=== PATIENT | female | born 1930 | race Caucasian/White ===

== ENCOUNTER 2018-05-23 15:26 | Emergency (ER) | payer MEDICARE, OTHER ==
[~2018-05-23] VITALS: Ht 165.1 cm; Wt 81.4 kg
[2018-05-23 16:37] LABS: BASOPHILS % (AUTO) 0.4 % (0-1); EOSINOPHILS % (AUTO) 0.2 % (0-6); HEMOGLOBIN 12.6 g/dl (12.0-16.0); LYMPHOCYTES # (AUTO) 0.8 X10'3 (1.1-4.8); LYMPHOCYTES % (AUTO) 16.4 % (21-51); MEAN CORPUSCULAR HEMOGLOBIN 28.2 PG (27.0-31.0); MEAN PLATELET VOLUME 7.9 FL (7.4-10.4); MONOCYTES # (AUTO) 0.6 X10'3 (0-0.9); MONOCYTES % (AUTO) 11.2 % (2-12); NEUTROPHILS # (AUTO) 3.6 X10'3 (1.8-7.7); NEUTROPHILS % (AUTO) 71.8 % (42-75); PLATELET COUNT 230 X10'3 (140-440); RED BLOOD COUNT 4.46 X10'6 (4.20-5.60); RED CELL DISTRIBUTION WIDTH 14.5 % (11.5-14.5); WHITE BLOOD COUNT 5.1 X10'3 (4.5-11.0)
[2018-05-23 16:53] LABS: ALANINE AMINOTRANSFERASE 18 U/L (12-78); ALBUMIN 3.8 G/DL (3.4-5.0); ALBUMIN/GLOBULIN RATIO 0.9 (1.1-1.5); ALKALINE PHOSPHATASE 91 IU/L (46-116); ANION GAP 11 (8-16); ASPARTATE AMINO TRANSFERASE 25 U/L (10-37); BILIRUBIN,TOTAL 0.5 MG/DL (0.1-1.0); BLOOD UREA NITROGEN 16 MG/DL (7-18); BUN/CREATININE RATIO 16.3 (6.6-38.0); CALCIUM 8.8 MG/DL (8.5-10.1); CHLORIDE 100 MMOL/L (99-107); CREATININE 0.98 MG/DL (0.40-0.90); GLUCOSE 98 MG/DL (70-104); POTASSIUM 3.2 MMOL/L (3.5-5.1); SODIUM 140 MMOL/L (135-145); TOTAL CARBON DIOXIDE 28.8 MMOL/L (24-32); TOTAL PROTEIN 8.1 G/DL (6.4-8.2); eGFR 54 ML/MIN
[2018-05-23] MEDS ORDERED: azithromycin 250mg tablet PO ONE (17:15)
[2018-05-23] MEDS ORDERED: albuterol 2.5 MG/3 ML nebule NEB ONE (17:15)
[2018-05-23] MEDS ORDERED: ALBU18HF2 INH (17:20)
[2018-05-23] MEDS ORDERED: AZIT250T PO (17:20)
[2018-05-23 18:16] VITALS: BP 156/67
== END 2018-05-23 18:18 | disposition home or self-care (01) ==
LOC: ER 15:27
DX: J20.9 Acute bronchitis, unspecified (principal); Z88.2 Allergy status to sulfonamides; Z79.899 Other long term (current) drug therapy; Z98.890 Other specified postprocedural states
CPT/HCPCS: 36415; 71046; 80053; 83605; 85025; 87040; 94640; 94760; 99284

== ENCOUNTER 2018-06-02 10:27 | Emergency (ER) | payer MEDICARE, OTHER ==
[~2018-06-02] VITALS: Ht 167.6 cm; Wt 79.5 kg
[~2018-06-02 10:27] MED LIST: ALBU18HF2 INH
[2018-06-02 11:30] LABS: BASOPHILS % (AUTO) 0.2 % (0-1); EOSINOPHILS % (AUTO) 0.1 % (0-6); HEMATOCRIT 37.2 % (35.0-45.0); HEMOGLOBIN 12.2 g/dl (12.0-16.0); LYMPHOCYTES # (AUTO) 0.7 X10'3 (1.1-4.8); LYMPHOCYTES % (AUTO) 6.1 % (21-51); MEAN CORPUSCULAR HEMOGLOBIN 27.1 PG (27.0-31.0); MEAN CORPUSCULAR HGB CONC 32.8 g/dL (33.0-36.5); MEAN CORPUSCULAR VOLUME 82.6 FL (78-98); MEAN PLATELET VOLUME 7.5 FL (7.4-10.4); MONOCYTES # (AUTO) 0.8 X10'3 (0-0.9); MONOCYTES % (AUTO) 6.3 % (2-12); NEUTROPHILS # (AUTO) 10.7 X10'3 (1.8-7.7); NEUTROPHILS % (AUTO) 87.3 % (42-75); PLATELET COUNT 338 X10'3 (140-440); RED CELL DISTRIBUTION WIDTH 14.2 % (11.5-14.5); WHITE BLOOD COUNT 12.2 X10'3 (4.5-11.0)
[2018-06-02 11:32] LABS: ALANINE AMINOTRANSFERASE 17 U/L (12-78); ALBUMIN 3.5 G/DL (3.4-5.0); ALBUMIN/GLOBULIN RATIO 0.7 (1.1-1.5); ALKALINE PHOSPHATASE 90 IU/L (46-116); ANION GAP 13 (8-16); BILIRUBIN,TOTAL 0.9 MG/DL (0.1-1.0); BLOOD UREA NITROGEN 12 MG/DL (7-18); BUN/CREATININE RATIO 13.6 (6.6-38.0); CALCIUM 9.3 MG/DL (8.5-10.1); CHLORIDE 103 MMOL/L (99-107); CREATININE 0.88 MG/DL (0.40-0.90); GLUCOSE 120 MG/DL (70-104); POTASSIUM 3.4 MMOL/L (3.5-5.1); SODIUM 143 MMOL/L (135-145); TOTAL CARBON DIOXIDE 27.4 MMOL/L (24-32); TOTAL PROTEIN 8.3 G/DL (6.4-8.2); eGFR 61 ML/MIN
[2018-06-02 11:33] LABS: ASPARTATE AMINO TRANSFERASE 17 U/L (10-37)
[2018-06-02 11:37] LABS: INR 1.5 INR; PROTHROMBIN TIME 15.2 SECONDS (9.0-12.0)
[2018-06-02 11:38] LABS: PARTIAL THROMBOPLASTIN TIME 74 SECONDS (22-32)
--- NOTE | 2018-06-02 13:15 | NUR ---
pt is 87 yo female c/o lower back pain increases when coughing, pt finished antibiotics approx 2 days ago for bronchitis, pt is GCS 15, a/o x3, resp even and unlabored, skin p/w/d, family at bedside, waiting to be evaluated
--- NOTE | 2018-06-02 13:26 | NUR ---
dr warner at bedside to eval pt
[2018-06-02] MEDS ORDERED: predniSONE 20 mg tablet PO ONE (13:30)
[2018-06-02] MEDS ORDERED: ipratropium/albuterol 3ml nebule NEB ONE (13:30)
[2018-06-02] MEDS ORDERED: PRED20TA PO (13:36)
[2018-06-02 14:45] VITALS: BP 136/78
== END 2018-06-02 14:46 | disposition home or self-care (01) ==
LOC: ER 10:29
DX: J40 Bronchitis, not specified as acute or chronic (principal); Z87.891 Personal history of nicotine dependence; Z98.890 Other specified postprocedural states; Z88.2 Allergy status to sulfonamides; Z79.899 Other long term (current) drug therapy
CPT/HCPCS: 36415; 71046; 80053; 84484; 85025; 85610; 85730; 93005; 94640; 94760; 99284; J7512

== ENCOUNTER 2020-10-22 12:08 | Emergency (ER) | payer BC, MEDICARE ==
[2020-10-23] MEDS ORDERED: POTA10CA44 PO (10:51)
[2020-10-23] MEDS ORDERED: FURO-150 PO (10:51)
[2020-10-23] MEDS ORDERED: CEPH250T PO (10:51)
== END 2020-10-22 15:00 | disposition left against medical advice (07) ==
LOC: ER 12:08
DX: M79.89 Other specified soft tissue disorders (principal); Z53.21 Procedure and treatment not carried out due to patient leaving prior to being seen by health care provider

== ENCOUNTER 2020-10-23 08:14 | Emergency (ER) | payer BC ==
[~2020-10-23] VITALS: Ht 157.5 cm; Wt 73.6 kg
--- NOTE | 2020-10-23 09:09 | NUR ---
VASCULAR ULTRASOUND AT BEDSIDE.
[2020-10-23 10:10] LABS: BASOPHILS % (AUTO) 0.6 % (0-1); EOSINOPHILS % (AUTO) 0.7 % (0-6); HEMATOCRIT 32.1 % (35.0-45.0); HEMOGLOBIN 10.7 g/dl (12.0-16.0); MEAN CORPUSCULAR HEMOGLOBIN 27.6 PG (27.0-31.0); MEAN CORPUSCULAR HGB CONC 33.3 g/dL (33.0-36.5); MEAN PLATELET VOLUME 7.1 FL (7.4-10.4); MONOCYTES # (AUTO) 0.5 X10'3 (0-0.9); MONOCYTES % (AUTO) 7.4 % (2-12); NEUTROPHILS % (AUTO) 76.3 % (42-75); PLATELET COUNT 301 X10'3 (140-440); RED BLOOD COUNT 3.87 X10'6 (4.20-5.60); RED CELL DISTRIBUTION WIDTH 15.5 % (11.5-14.5); WHITE BLOOD COUNT 6.5 X10'3 (4.5-11.0)
[2020-10-23 10:28] LABS: ALANINE AMINOTRANSFERASE 18 U/L (12-78); ALBUMIN 3.6 G/DL (3.4-5.0); ALBUMIN/GLOBULIN RATIO 0.9 (1.1-1.5); ALKALINE PHOSPHATASE 98 IU/L (46-116); ANION GAP 9 (8-16); ASPARTATE AMINO TRANSFERASE 18 U/L (10-37); BILIRUBIN,TOTAL 0.5 MG/DL (0.1-1.0); BLOOD UREA NITROGEN 19 MG/DL (7-18); BUN/CREATININE RATIO 21.1 (6.6-38.0); CALCIUM 8.4 MG/DL (8.5-10.1); CHLORIDE 103 MMOL/L (99-107); GLUCOSE 100 MG/DL (70-104); POTASSIUM 3.3 MMOL/L (3.5-5.1); SODIUM 142 MMOL/L (135-145); TOTAL CARBON DIOXIDE 30.4 MMOL/L (24-32); TOTAL PROTEIN 7.8 G/DL (6.4-8.2); eGFR 59 ML/MIN
[2020-10-23 10:34] LABS: MAGNESIUM 2.3 MG/DL (1.5-2.4)
[2020-10-23] MEDS ORDERED: potassium Cl 20 mEq SR tablet PO ONE (10:50)
[2020-10-23] MEDS ORDERED: POTA10CA44 PO (10:51)
[2020-10-23] MEDS ORDERED: CEPH250T PO (10:51)
[2020-10-23] MEDS ORDERED: FURO-150 PO (10:51)
[2020-10-23 11:33] VITALS: BP 113/79
--- NOTE | 2020-10-23 11:45 | NUR ---
CALLED LAB ABOUT LACTIC ACID, THEY DID MAINTANCE ON MACHINE. THEY NEED ANOTHER 30MIN
== END 2020-10-23 12:33 | disposition home or self-care (01) ==
LOC: ER 08:15
DX: R60.0 Localized edema (principal); L03.90 Cellulitis, unspecified; E87.6 Hypokalemia; I48.91 Unspecified atrial fibrillation; Z98.890 Other specified postprocedural states; Z88.2 Allergy status to sulfonamides; Z79.2 Long term (current) use of antibiotics; Z79.899 Other long term (current) drug therapy
CPT/HCPCS: 36415; 80053; 83605; 83735; 83880; 84145; 85025; 87040; 93005; 93971; 99285